=== PATIENT | male | born 1955 | race Caucasian/White ===

== ENCOUNTER 2017-10-08 07:12 | Day surgery (SDC) | payer OTHER ==
[2017-10-08] MEDS ORDERED: FENTAnyl 50 MCG/ML VIAL (10:41)
[2017-10-08] MEDS ORDERED: LIDOCAINE 2% (SDV) 5 ML INJ (10:48)
[2017-10-08] MEDS ORDERED: ROCURONIUM 50 MG INJ (10:48)
[2017-10-08] MEDS ORDERED: ONDANSETRON 4 MG INJ (10:48)
[2017-10-08] MEDS ORDERED: MIDAZOLAM 1 MG/ML 2 ML INJ (10:48)
[2017-10-08] MEDS ORDERED: PROPOFOL 20 ML (10:48)
[2017-10-08] MEDS ORDERED: DEXAMETHASONE 4 MG/ML 1 ML INJ (10:48)
[2017-10-08] MEDS: COCAINE 4% 4 ML TOP (10:54)
[2017-10-08] MEDS ORDERED: SUGAMMADEX SODIUM 200 MG/2 ML VIAL IV (11:09)
[2017-10-08] MEDS ORDERED: EPHEDrine SULFATE 50 MG/5 ML SYG IV (11:30)
[2017-10-08] MEDS ORDERED: FENTAnyl 50 MCG/ML VIAL IV ×3 (11:30)
[2017-10-08] MEDS ORDERED: hydrALAzine 20 MG INJ IV (11:30)
[2017-10-08] MEDS ORDERED: HYDROmorphONE (0.2 MG/ML) 10ML SYG IV ×3 (11:30)
[2017-10-08] MEDS ORDERED: ONDANSETRON 4 MG INJ IV (11:30)
[2017-10-08] MEDS ORDERED: LABETALOL HCL 20MG INJ IV (11:30)
== END 2017-10-08 12:30 | disposition home or self-care (01) ==
LOC: SDS 07:12
DX: J38.1 Polyp of vocal cord and larynx (principal); Z87.891 Personal history of nicotine dependence
CPT/HCPCS: 31536; 88305; 93005